=== PATIENT | female | born 1980 | race Asian ===

== ENCOUNTER 2021-11-17 12:40 | Emergency (ER) | payer OTHER ==
[~2021-11-17] VITALS: Ht 167.6 cm; Wt 85.7 kg
[2021-11-17 12:40] VITALS: TEMP 98.6
[~2021-11-17 12:40] MED LIST: AMLO2.5T PO; ATEN25TA21 PO; CELLCEPT500 MG PO; CLONIDINE0.2 MG PO; GABA100C2 PO; HYDR25TA60 PO; LISI10TA11 PO; LISI20TA11 PO; LOSA50TA PO; PARO20TA3 PO; PLAQUENIL200 MG PO; PRED5TAB3 PO
[2021-11-17 13:25] LABS: PLATELET COUNT 233 K/uL (152-353)
[2021-11-17 13:31] LABS: POTASSIUM 3.6 mmol/L (3.6-5.2)
[2021-11-17 15:02] VITALS: BP 137/96
== END 2021-11-17 15:02 | disposition home or self-care (01) ==
LOC: ED 12:40
PROVIDERS: Emergency Medicine
DX: I16.0 Hypertensive urgency (principal); Z79.899 Other long term (current) drug therapy; Z51.81 Encounter for therapeutic drug level monitoring
CPT/HCPCS: 36415; 80053; 80307; 81000; 84484; 85007; 85027; 93005; 96374; 96375; 99284; J2270; J3490